=== PATIENT | female | born 1940 | race American Indian/Alaskan Native ===

== ENCOUNTER 2018-12-26 09:25 | Emergency (ER) | payer MEDICARE, BC ==
--- NOTE | 2018-12-26 10:58 | Emergency Department Report ---
Eye Injury/Foreign Body - HPI Duration: Today Eye Location: Right Severity: None Tetanus Status: Up to Date Eye Symptoms: Eye Pain: No, Blurred Vision: No, Eye Redness: No, Grinding/Hammering Metal: No, Contact Lens Use: No, Photophobia: No Other History: This is a 72-year-old female who presents with swelling to right lower eyelid. Patient's stay she woke up with swelling this morning. She is visiting here from [place]. He wears glasses. Reports the patient is the same with glasses. She denies pain, visual changes, grinding sensation, redness, or discharge. ED Review of Systems ROS: Stated complaint: SWOLLEN EYE Other details as noted in HPI Constitutional: denies: chills, fever Eyes: other (right lower eyelid swelling). denies: eye pain, eye discharge, vision change Respiratory: denies: cough, shortness of breath, wheezing Cardiovascular: denies: chest pain, palpitations Skin: denies: rash, lesions Neurological: denies: headache, weakness, paresthesias Psychiatric: denies: anxiety, depression ED Past Medical Hx - Past Medical History Previous Medical History?: Yes Hx Hypertension: Yes (pre hypertension) Additional medical history: anxiety - Surgical History Past Surgical History?: Yes Additional Surgical History: lumpectomy on right side - Social History Smoking Status: Never Smoker Substance Use Type: Alcohol - Medications Home Medications: Home Medications Medication Instructions Recorded Confirmed Last Taken Type Clindamycin [Clindamycin CAP] 300 mg PO Q8H #21 cap 12/26/18 Unknown Rx Eye Injury Exam - Exam General: Vital signs noted. No distress. Alert and acting appropriately. - Visual Acuity Bilateral Vision Acuity Degree: 20/20 Eye Exam: Left Chemosis (right lower eye lid, erythema, nontender), Neither Injection, Neither Abnormal Pupil, Neither EOMI, Neither Eye Foreign Body, Neither Lid Foreign Body, Neither Mucous Discharge, Neither Purulent Discharge, Neither Fluorescein Uptake, Neither Fluorescein Uptake (slit lamp), Neither Cell/Flare (slit lamp), Neither Corneal Edema, Neither Photophobia Right Vision Acuity Degree: 20/25 Left Vision Acuity Degree: 20/20 ED Course Vital Signs 12/26/18 09:32 Temperature 98.8 F Pulse Rate 57 L Respiratory 20 Rate Blood Pressure 166/70 O2 Sat by Pulse 98 Oximetry ED Medical Decision Making - Medical Decision Making This is a 72-year-old female who presents with right lower eyelid swelling. Patient is stable and was examined by me. Vitals normal. Visual acuity performed. Physical assessment susceptible of facial cellulitis. Start clindamycin 300 mg po tid x 7 days, 0 refills. Instructed to use ice to decrease swelling. Discussed plan with mother and she agreed with plan. Discharged home in stable condition. Patient will follow-up with agricultural production engineer and primary care when she arrives home in [place]. Critical care attestation.: If time is entered above; I have spent that time in minutes in the direct care of this critically ill patient, excluding procedure time. ED Disposition Clinical Impression: Cellulitis of face Disposition: DC- TO HOME OR SELFCARE Is pt being admited?: No Does the pt Need Aspirin: No Condition: Stable Instructions: Cellulitis (ED) Additional Instructions: Follow-up with ophthalmology. Follow-up with your primary care provider and agricultural production engineer when he returned home. Prescriptions: Clindamycin [Clindamycin CAP] 300 mg PO Q8H #21 cap Referrals: [facility] [Provider Group] - 3-5 Days [facility] [Provider Group] - 3-5 Days [facility] [Provider Group] - 3-5 Days Time of Disposition: 11:00
== END 2018-12-26 11:04 | disposition home or self-care (01) ==
LOC: ED 09:25
CPT/HCPCS: 99283